=== PATIENT | male | born 1930 | race Caucasian/White ===

== ENCOUNTER 2017-02-19 07:25 | Emergency (ER) | payer OTHER ==
[~2017-02-19] VITALS: Ht 182.9 cm; Wt 83.0 kg
[~2017-02-19 07:25] MED LIST: ADULT LOW STREN81 M2 PO; ALBUTEROL SULF8.5 GM IH; ALEVE220 M2 PO; ANTIVERT12.5 MG PO; APRESOLIN50 MG PO; APRESOLINE50 M1 PO; APRESOLINE50 MG PO; ASPIRIN325 MG PO; ASPIRIN81 M1 PO; COLESTID1 GM PO; COLESTIPOL HCL1 GM PO; COUMADIN1 MG PO; COUMADIN3 MG PO; COUMADIN5 MG PO; COUMADIN6 MG PO; COUMADIN7.5 MG PO; COZAAR100 MG PO; Colace PO; Coumadin,Jantoven PO; Cozaar PO; DAILY VITAMIN1 EAC8 PO; DEXTROSE 50%50 ML IV; DOCU SOFT100 MG PO; Dulcolax PO; Dulcolax PR; Ecotrin PO; FLAGYL250 MG PO; FLUNISOLIDE25 M1 NS; FLUNISOLIDE25 ML BOTH NARES; GLIPIZIDE10 M1 PO; GLUCAGEN1 MG IM/SC; GLUCOPHAGE850 MG PO; Glucophage PO; HYDRALAZINE HCL25 MG PO; HYTRIN2 MG PO; Hytrin PO; K-Dur PO; KEFLEX500 MG PO; LIDEX 0.05% CRE60 GM TP; LIPITOR20 MG PO; LITE COAT ASPI325 M1 PO; LOSARTAN POTAS100 MG PO; LUNESTA2 MG PO; MECLIZINE HCL12.5 M2 PO; METFORMIN HCL850 MG PO; MULTIVITAMIN1 EAC1 PO; Maalox, Mylanta PO; Milk Of Magnesia,MOM PO; NIACIN500 MG PO; NIASPAN,SLO-NI500 MG PO; NORVASC10 MG PO; NOVOLOG PE100 UNITS/ SC; Norvasc PO; Oyst-Cal D, Oscal W/ PO; PROTONIX40 MG PO; PROzac PO; Proventil,Ventolin H IH; SENOKOT S,PE1 TABLET PO; SPIRIVA1 INHALATI IH; TERAZOSIN HCL2 MG PO; THEO-DUR,THEOC200 MG PO; THERAGRAN1 TABLET PO; Tylenol Regular Stre PO; WARFARIN SODIUM5 MG PO; predniSONE PO
[2017-02-19 08:02] LABS: EOSINOPHIL (%) 2.3 % (0-5); EOSINOPHIL COUNT 0.1 K/uL (0-0.3); HEMATOCRIT 36.9 % (38.0-50.0); IMMATURE GRANULOCYTE (%) 0.2 % (0.0-0.7); INSTRUMENT ABS NEUTROPHIL CT 3.5 K/uL; LYMPHOCYTE COUNT 1.2 K/uL (1.0-2.8); MCH 26.4 PG (29.0-34.0); MCHC 32.2 G/DL (30.0-36.0); MEAN PLAT.VOLUME 9.9 uM^3 (9.0-12.4); MONOCYTE (%) 8.4 % (3-12); MONOCYTE COUNT 0.4 K/uL (0-0.8); NEUTROPHIL (%) 66.3 % (45-76); NEUTROPHIL COUNT 3.5 K/uL (1.8-6.4); PLATELET COUNT 237 K/uL (156-360); RBC DIS.WIDTH-SD 45.1 % (39-53); WHITE BLOOD COUNT 5.3 K/uL (4.1-10.2)
[2017-02-19 08:12] LABS: INTER. NORMALIZED RATIO 2.4; PROTHROMBIN TIME 24.8 (9.2-11.2)
[2017-02-19 08:14] LABS: CHLORIDE 106 mEq/L (99-109); SODIUM 139 mEq/L (136-147)
[2017-02-19 08:16] LABS: GLUCOSE 107 mg/dL (70-99)
[2017-02-19 08:17] LABS: ANION GAP 11 MEQ/L (2-14)
[2017-02-19 08:19] LABS: GFR ESTIMATE (CALCULATED) 56 mL/min/
[2017-02-19 08:20] LABS: UREA NITROGEN (BUN) 20 mg/dL (9-23)
[2017-02-19 08:38] LABS: ADD MIUA? YES; BILIRUBIN NEGATIVE; BLOOD SMALL; COLOR YELLOW ((YELLOW)); GLUCOSE (STRIP) NEGATIVE; KETONES NEGATIVE; LEUKOCYTES NEGATIVE; NITRITE NEGATIVE; PROTEIN (STRIP) 30; SPECIFIC GRAVITY 1.011 (1.000-1.030); UROBILINOGEN 0.2 MG/DL (0.2-1.0)
[2017-02-19 08:44] LABS: BACTERIA RARE /HPF; EPITHELIAL CELLS NONE SEEN /HPF; MUCUS NONE SEEN /LPF; RED BLOOD CELLS 0-5 /HPF (0-5); WHITE BLOOD CELLS 0-5 /HPF (0-5)
[2017-02-19] MEDS ORDERED: MIRALAX17 GM PO (11:59)
[2017-02-19 12:19] VITALS: BP 123/55
== END 2017-02-19 12:21 | disposition home or self-care (01) ==
LOC: EME 07:25
PROVIDERS: Emergency Medicine
DX: K59.00 Constipation, unspecified (principal); I48.91 Unspecified atrial fibrillation; I10 Essential (primary) hypertension; E78.5 Hyperlipidemia, unspecified; E11.9 Type 2 diabetes mellitus without complications; Z79.84 Long term (current) use of oral hypoglycemic drugs; Z79.01 Long term (current) use of anticoagulants; Z87.442 Personal history of urinary calculi; Z87.891 Personal history of nicotine dependence
CPT/HCPCS: 74022; 80048; 81003; 85025; 85610; 93005; 99281; 99285

== ENCOUNTER 2017-12-04 20:40 | Emergency (ER) | payer OTHER ==
[~2017-12-04] VITALS: Ht 182.9 cm; Wt 82.6 kg
[~2017-12-04 20:40] MED LIST changes: +MIRALAX17 GM PO
[2017-12-04 21:22] LABS: HEMATOCRIT 29.3 % (38.0-50.0); HEMOGLOBIN 9.5 G/DL (12.5-16.6); MCH 27.2 PG (29.0-34.0); MCHC 32.4 G/DL (30.0-36.0); PLATELET COUNT 259 K/uL (156-360); RBC DIS.WIDTH-CV 15.2 % (11.8-14.6); RBC DIS.WIDTH-SD 46.5 % (39-53); RED BLOOD COUNT 3.49 M/uL (4.00-5.50)
[2017-12-04 21:30] LABS: CHLORIDE 110 mEq/L (99-109); POTASSIUM 4.1 mEq/L (3.7-5.4); SODIUM 143 mEq/L (136-147)
[2017-12-04 21:31] LABS: GLUCOSE 127 mg/dL (70-99)
[2017-12-04 21:35] LABS: CREATININE 1.4 mg/dL (0.6-1.3); GFR ESTIMATE (CALCULATED) 51 mL/min/ (58.99-99999)
[2017-12-04 21:36] LABS: UREA NITROGEN (BUN) 17 mg/dL (9-23)
[2017-12-04 21:43] LABS: TROP-I INTERPRETATION NEGATIVE; TROPONIN-I 0.02 ng/mL (0.0-0.30)
[2017-12-04 22:32] LABS: INTER. NORMALIZED RATIO 5.8
[2017-12-05 00:51] LABS: TROP-I INTERPRETATION NEGATIVE; TROPONIN-I 0.02 ng/mL (0.0-0.30)
[2017-12-05 01:39] VITALS: BP 123/62
== END 2017-12-05 01:51 | disposition home or self-care (01) ==
LOC: EME → EDBD 20:40 → EME 12-05 01:51
PROVIDERS: Emergency Medicine
DX: R07.9 Chest pain, unspecified (principal); T45.515A Adverse effect of anticoagulants, initial encounter; Z79.01 Long term (current) use of anticoagulants; E11.9 Type 2 diabetes mellitus without complications; Z79.84 Long term (current) use of oral hypoglycemic drugs; E78.5 Hyperlipidemia, unspecified; I10 Essential (primary) hypertension; Z95.0 Presence of cardiac pacemaker; F03.90 Unspecified dementia, unspecified severity, without behavioral disturbance, psychotic disturbance, mood disturbance, and anxiety; Z86.73 Personal history of transient ischemic attack (TIA), and cerebral infarction without residual deficits; J44.9 Chronic obstructive pulmonary disease, unspecified; F32.9 Major depressive disorder, single episode, unspecified; F41.9 Anxiety disorder, unspecified; N40.0 Benign prostatic hyperplasia without lower urinary tract symptoms; Z88.0 Allergy status to penicillin; Z88.5 Allergy status to narcotic agent; Z87.891 Personal history of nicotine dependence; Z87.442 Personal history of urinary calculi
CPT/HCPCS: 71046; 80048; 84484; 85027; 85610; 93005; 99281; 99285